=== PATIENT | male | born 1960 | race Caucasian/White ===

== ENCOUNTER 2022-05-29 11:23 | Inpatient (IN) | payer MEDICARE, MEDICAID ==
[~2022-05-29] VITALS: Ht 185.4 cm; Wt 79.1 kg
[2022-05-29 20:25] VITALS: BP 110/70
[2022-05-29] MEDS ORDERED: PNEUMOCOCCAL VACCINE POLYVALENT 0.5 ML VIAL [PPSV23] IM. ONE (21:30)
[2022-05-30] MEDS ORDERED: OLAN10 PO (11:42)
[2022-05-30 16:42] VITALS: BP 106/60
[2022-05-30] MEDS ORDERED: ONDANSETRON HCL 4 MG TABLET PO PRN (16:45)
[2022-05-30] MEDS ORDERED: MAGNESIUM HYDROXIDE SUSPENSION 30 ML UDCUP PO PRN (16:45)
[2022-05-30] MEDS ORDERED: LOPERAMIDE HCL 2 MG CAPSULE PO PRN (16:45)
[2022-05-30] MEDS ORDERED: DOCUSATE SODIUM 100 MG CAPSULE PO PRN (16:45)
[2022-05-30] MEDS ORDERED: ACETAMINOPHEN 325 MG TABLET PO PRN (16:45)
[2022-05-30] MEDS ORDERED: CloNIDine HCL 0.1 MG TABLET PO PRN (16:45)
[2022-05-30] MEDS ORDERED: MAG HYDROX/AL HYDROX/SIMETH ES 30 ML SUSPENSION UDCUP PO PRN (16:45)
[2022-05-30] MEDS ORDERED: PETROLATUM,WHITE 28 GM JELLY TP PRN (16:45)
[2022-05-30] MEDS ORDERED: ALBUTEROL SULFATE HFA 90 MCG/PUFF 8 GM INHALER IH PRN (16:45)
[2022-05-30] MEDS ORDERED: NICOTINE 14 MG/24 HOUR PATCH TD PRN (16:45)
[2022-05-30] MEDS ORDERED: GuaiFENesin/D-METHORPHAN [SUGAR-FREE] 200-20MG/10 ML SYRUP UDCUP PO PRN (16:45)
[2022-05-30] MEDS ORDERED: IBUPROFEN 400 MG TABLET PO PRN (16:45)
[2022-05-30 20:12] VITALS: BP 116/68
[2022-05-30] MEDS: LORazepam 2 MG TABLET PO PRN (20:37)
[2022-05-30] MEDS: OLANZapine 10 MG TABLET PO SCH (20:37)
[2022-05-31] MEDS: OLANZapine 10 MG TABLET PO SCH ×2 (08:09→21:01)
[2022-05-31] MEDS: LORazepam 2 MG TABLET PO PRN ×3 (08:09→21:26)
[2022-05-31 08:58] VITALS: BP 107/64
[2022-05-31] MEDS: HALOPERIDOL 5 MG TABLET PO PRN (16:23)
[2022-05-31 20:00] VITALS: BP 117/66
[2022-05-31] MEDS: ZOLPIDEM TARTRATE 10 MG TABLET PO PRN (21:26)
[2022-06-01 07:30] LABS: ALANINE AMINOTRANSFERASE 16 U/L (12-78); ALBUMIN 3.1 g/dL (3.4-5.0); ALKALINE PHOSPHATASE 127 U/L (46-116); ANION GAP 3 mmol/L (8-16); ASPARTATE AMINOTRANSFERASE 14 U/L (15-37); BILIRUBIN,TOTAL 0.4 mg/dL (0.1-1.0); CALCIUM, TOTAL 8.6 mg/dL (8.8-10.5); CARBON DIOXIDE 28 mmol/L (22-29); CHLORIDE 105 mmol/L (98-107); CHOLESTEROL 151 mg/dL (131-200); CREATININE 0.66 mg/dL (0.60-1.30); FREE T4 (FREE THYROXINE) 1.05 ng/dL (0.76-1.46); GLUCOSE,RANDOM 89 mg/dL (70-110); HDL CHOLESTEROL 77 mg/dL (40-60); LDL CHOL (CALC.) 67 mg/dL (0-130); POTASSIUM 3.9 mmol/L (3.5-5.1); SODIUM SERUM 136 mmol/L (136-145); THYROID STIMULATING HORMONE 0.67 uIU/mL (0.36-3.74); TRIGLYCERIDES 33 mg/dL (15-150); UREA NITROGEN, BLOOD 8 mg/dL (7-18)
[2022-06-01 07:32] LABS: GLOMERULAR FILTR. RATE CALC > 60 mL/min (>60)
[2022-06-01] MEDS: OLANZapine 10 MG TABLET PO SCH ×2 (08:06→20:26)
[2022-06-01] MEDS: LORazepam 2 MG TABLET PO PRN (19:20)
[2022-06-02 02:24] VITALS: BP 121/70
[2022-06-02] MEDS: OLANZapine 10 MG TABLET PO SCH ×2 (08:13→20:17)
[2022-06-02 08:29] VITALS: BP 118/66
[2022-06-02] MEDS: HALOPERIDOL 5 MG TABLET PO PRN (16:28)
[2022-06-02 20:33] VITALS: BP 122/84
[2022-06-03] MEDS: HALOPERIDOL 5 MG TABLET PO PRN (08:13)
[2022-06-03] MEDS: OLANZapine 10 MG TABLET PO SCH ×2 (08:14→20:42)
[2022-06-03] MEDS: LORazepam 2 MG TABLET PO PRN ×2 (08:14→16:45)
[2022-06-03 08:15] VITALS: BP 124/62
[2022-06-03 20:45] VITALS: BP 114/67
[2022-06-04 08:12] VITALS: BP 122/77
[2022-06-04] MEDS: OLANZapine 10 MG TABLET PO SCH ×2 (08:38→20:29)
[2022-06-04] MEDS: LORazepam 2 MG TABLET PO PRN (17:09)
[2022-06-04 20:13] VITALS: BP 104/68
[2022-06-05 08:07] VITALS: BP 92/53
[2022-06-05] MEDS: LORazepam 2 MG TABLET PO PRN ×2 (08:20→20:06)
[2022-06-05] MEDS: OLANZapine 10 MG TABLET PO SCH ×2 (08:20→20:06)
[2022-06-05 20:06] VITALS: BP 105/70
[2022-06-06] MEDS: OLANZapine 10 MG TABLET PO SCH ×2 (08:09→20:09)
[2022-06-06] MEDS: LORazepam 2 MG TABLET PO PRN (08:09)
[2022-06-06 20:05] VITALS: BP 118/78
[2022-06-07] MEDS: LORazepam 2 MG TABLET PO PRN (08:17)
[2022-06-07] MEDS: OLANZapine 10 MG TABLET PO SCH ×2 (08:17→20:07)
[2022-06-07 09:22] LABS: GLUCOMETER DEV NAME(LOC) POC.BV
[2022-06-07 21:03] VITALS: BP 123/79
[2022-06-08] MEDS: OLANZapine 10 MG TABLET PO SCH ×2 (08:04→20:17)
[2022-06-08 10:25] VITALS: BP 121/75
[2022-06-08] MEDS: LORazepam 2 MG TABLET PO PRN (16:21)
[2022-06-08] MEDS: HALOPERIDOL 5 MG TABLET PO PRN (16:21)
[2022-06-08 20:11] VITALS: BP 112/66
[2022-06-09] MEDS: LORazepam 2 MG TABLET PO PRN ×2 (08:05→16:32)
[2022-06-09] MEDS: OLANZapine 10 MG TABLET PO SCH ×2 (08:05→20:37)
[2022-06-09 08:11] VITALS: BP 99/58
[2022-06-09] MEDS: HALOPERIDOL 5 MG TABLET PO PRN (16:32)
[2022-06-09 20:26] VITALS: BP 108/62
[2022-06-09] MEDS: ZOLPIDEM TARTRATE 10 MG TABLET PO PRN (20:37)
[2022-06-10 08:23] VITALS: BP 105/58
[2022-06-10] MEDS: OLANZapine 10 MG TABLET PO SCH (08:25)
[2022-06-10] MEDS ORDERED: OLAN10 PO (10:40)
== END 2022-06-10 13:20 | disposition home or self-care (01) | DRG 885 ==
LOC: B3A 20:27
PROVIDERS: ADMIT Psychiatry & Neurology Psychiatry; ATTEND Psychiatry & Neurology Psychiatry
DX: F20.0 Paranoid schizophrenia (principal); G21.11 Neuroleptic induced parkinsonism; F15.10 Other stimulant abuse, uncomplicated; F12.10 Cannabis abuse, uncomplicated; D69.6 Thrombocytopenia, unspecified; Z20.822 Contact with and (suspected) exposure to COVID-19; F10.10 Alcohol abuse, uncomplicated; G47.00 Insomnia, unspecified; T43.505A Adverse effect of unspecified antipsychotics and neuroleptics, initial encounter; Y90.9 Presence of alcohol in blood, level not specified; F19.10 Other psychoactive substance abuse, uncomplicated; Z91.51 Personal history of suicidal behavior
CPT/HCPCS: 80053; 80061; 84439; 84443; 87081